=== PATIENT | female | born 1955 | race Caucasian/White ===

== ENCOUNTER → 2019-07-06 | Outpatient (CLI) | payer OTHER | LOC: M.RAD 10:28 | DX: Z12.31 Encounter for screening mammogram for malignant neoplasm of breast (principal) ==

== ENCOUNTER → 2019-10-24 | Outpatient (CLI) | payer OTHER | LOC: M.RAD 08:50 | DX: Z13.820 Encounter for screening for osteoporosis (principal); M81.0 Age-related osteoporosis without current pathological fracture ==

== ENCOUNTER 2019-12-07 08:45 | Emergency (ER) | payer OTHER ==
[~2019-12-07] VITALS: Ht 154.9 cm; Wt 83.9 kg
[2019-12-07] MEDS ORDERED: GLIPIZIDE 10 MG10 MG PO (08:56)
[2019-12-07] MEDS ORDERED: JARDIANCE10 MG PO (08:56)
[2019-12-07] MEDS ORDERED: TOPROL XL25 MG PO (08:56)
[2019-12-07] MEDS ORDERED: SIMVASTATIN80 MG PO (08:56)
[2019-12-07] MEDS ORDERED: PRINIVIL20 M1 PO (08:57)
[2019-12-07] MEDS ORDERED: JANUVIA25 MG PO (08:57)
[2019-12-07 12:28] VITALS: BP 102/56
== END 2019-12-07 12:29 | disposition home or self-care (01) ==
LOC: M.ERS 08:45
DX: S06.0X0A Concussion without loss of consciousness, initial encounter (principal); S00.11XA Contusion of right eyelid and periocular area, initial encounter; S80.01XA Contusion of right knee, initial encounter; S50.811A Abrasion of right forearm, initial encounter; S60.811A Abrasion of right wrist, initial encounter; I10 Essential (primary) hypertension; E11.9 Type 2 diabetes mellitus without complications; Z88.8 Allergy status to other drugs, medicaments and biological substances; W06.XXXA Fall from bed, initial encounter; Y93.89 Activity, other specified; Y92.89 Other specified places as the place of occurrence of the external cause; Y99.8 Other external cause status

== ENCOUNTER → 2020-11-18 | Outpatient (CLI) | payer OTHER ==
[~2020-11-18] MED LIST: GLIPIZIDE 10 MG10 MG PO; JANUVIA25 MG PO; JARDIANCE10 MG PO; PRINIVIL20 M1 PO; SIMVASTATIN80 MG PO; TOPROL XL25 MG PO
== END ==
LOC: M.RAD 10:25
PROVIDERS: ATTEND Family Medicine
DX: Z12.31 Encounter for screening mammogram for malignant neoplasm of breast (principal); N64.89 Other specified disorders of breast